=== PATIENT | male | born 1960 | race African-American/Black ===

== ENCOUNTER 2016-11-23 05:18 | Emergency (ER) | payer OTHER ==
--- NOTE | 2016-11-23 05:26 | PDOC ---
History of Present Illness - General Stated Complaint: CHEST DISCOMFORT Time Seen by Provider: 11/23/16 05:26 History Source: Patient Exam Limitations: No Limitations - History of Present Illness Initial Comments: 11/23/16 06:48 56yo Male patient w/ PmHx: HTN presents to ED c/o chest pain radiating down posterior aspect of his left arm starting 4 am this morning. Patient states symptoms woke him up out of his sleep. Patient describes symptoms as left arm feels "funny" in comparison to his right arm. He states he took a baby asa prior to arrival. Denies n/v/d, sweating, diff breathing, abd pain, back pain, dizziness, or any other complaints at this time. Presenting Symptoms: Chest Pain Severity/Quality: reports: mild, pressure Location: reports: substernal Chest Pain Radiation: reports: arms (Left) Activities at Onset: reports: sleep Prior Chest Pain/Cardiac Workup: reports: No prior chest pain, No prior cardiac workup Modifying Factors: worse with: antacids, breathing, coughing, defecating, eating , exercise, lying down, morphine, movement, nitroglycerin, oxygen, palpation, rest, other Nitro Today/Relief: No: no nitro taken today, 0.4 mg x 1, 0.4 mg x 2, 0.4 mg x 3 , 0.4 mg x 4, provided by EMS, provided by ED, provided at home, no relief, mild relief, complete relief Aspirin Received prior to arrival (Core Measure): Yes: 81 mg x 1 ASA Contraindications (Core Measure): No: Allergy, Other, Active Blding w/i 24 hrs., Plavix, Receiving Warfarin Past History - Travel Traveled outside of the country in the last 30 days: No Close contact w/someone who was outside of country & ill: No - Past Medical History Allergies/Adverse Reactions: Allergies Allergy/AdvReac Type Severity Reaction Status Date / Time No Known Allergies Allergy Verified 11/23/16 05:32 Home Medications: Ambulatory Orders Amlodipine Besylate/Benazepril [Lotrel 5-20 mg Capsule] 1 each PO DAILY HTN: Yes - Psycho/Social/Smoking Cessation Hx Anxiety: No Suicidal Ideation: No Smoking History: Never smoked Hx Alcohol Use: Yes (occasionally) Cardiac Specific PMH - Complaint Specific PMHX Abdominal Aortic Aneurysm: No Angina: No Cardiac Arrhythmia: No Cardiac Stent: No GERD: No Myocardial Infarction: No Pacemaker: No Pulmonary Embolus: No Valvular Heart Disease: No Peripheral Vascular Disease: No Review of Systems - Review of Systems Able to Perform ROS?: Yes Is the patient limited Mongolian proficient: No Constitutional: No: Chills, Fever Respiratory: No: Cough, Orthopnea, Shortness of Breath, Stridor, Wheezing Cardiac (ROS): Yes: Chest Pain. No: Edema, Lightheadedness, Palpitations, Syncope, Chest Tightness ABD/GI: No: Nausea, Poor Appetite, Poor Fluid Intake, Vomiting : No: Burning, Flank Pain, Hematuria Musculoskeletal: No: Back Pain Integumentary: No: Bruising, Erythema, Rash, Sweating Neurological: No: Headache, Numbness, Seizure, Tingling, Tremors, Weakness, Unsteady Gait, Ataxia, Dizziness All Other Systems: Reviewed and Negative *Physical Exam - Vital Signs Last Vital Signs Temp Pulse Resp BP Pulse Ox 98.7 F 65 13 141/91 99 11/23/16 05:32 11/23/16 06:04 11/23/16 06:04 11/23/16 06:04 11/23/16 06:04 - Physical Exam General Appearance: Yes: Nourished, Appropriately Dressed. No: Apparent Distress, Mild Distress, Moderate Distress, Severe Distress Neck: positive: Trachea midline, Normal Thyroid, Supple. negative: Rigid, Carotid bruit, Stridor, Lymphadenopathy (R), Lymphadenopathy (L) Respiratory/Chest: positive: Lungs Clear, Normal Breath Sounds. negative: Chest Tender, Respiratory Distress, Accessory Muscle Use, Labored Respiration, Rapid RR, Crackles, Rales, Rhonchi, Stridor, Wheezing Cardiovascular: positive: Regular Rhythm, Regular Rate. negative: Edema, JVD, Murmur Gastrointestinal/Abdominal: positive: Normal Bowel Sounds, Flat, Soft. negative : Distended, Guarding, Rebound, Tenderness Musculoskeletal: positive: Normal Inspection. negative: CVA Tenderness Extremity: positive: Normal Capillary Refill, Normal Inspection, Normal Range of Motion. negative: Pedal Edema, Swelling, Calf Tenderness, Erythema, Inflammation Integumentary: positive: Normal Color, Dry, Warm Neurologic: positive: reinforcement maker II-XII NML intact, Fully Oriented, Alert, Normal Mood/ Affect, Normal Response, Motor Strength 5/5 Heart Score/ECG Review - History History: Slightly suspicious - Electrocardiogram EKG: Normal - Age Age: 45-65 - Risk Factors Risk Factors Heart Score: No Hx Hypercholesterolemia, Yes Hx Hypertension, No Hx Diabetes, No Smoking History, No Positive family hx of cardiac disease, No Hx Obesity Based on the list above the patient has:: 1-2 risk factors - Troponin Troponin: </= normal limit - Score Heart Score - Total: 2 - ECG Impressions Normal ECG: Yes Non-specific ST Elevation: No Ischemic Changes: No Bradycardia: No Torsades sunny Pointes: No WPW: No ED Treatment Course - LABORATORY CBC & Chemistry Diagram: 11/23/16 05:35 11/23/16 05:35 - ADDITIONAL ORDERS Additional order review: Laboratory Results 11/23/16 05:35 Sodium 141 Potassium 4.1 Chloride 105 Carbon Dioxide 27 Anion Gap 9 BUN 16 Creatinine 0.9 D Creat Clearance w eGFR > 60 Random Glucose 94 Calcium 9.2 Total Bilirubin 0.8 D AST 15 D ALT 17 Alkaline Phosphatase 84 Creatine Kinase 185 Troponin I < 0.02 Total Protein 6.6 Albumin 3.6 11/23/16 05:35 RBC 4.90 MCV 84.4 MCHC 33.2 RDW 13.2 MPV 7.3 L Neutrophils % 39.8 L D Lymphocytes % 48.4 H D Monocytes % 9.3 Eosinophils % 1.4 Basophils % 1.1 - RADIOLOGY Radiology Studies Ordered: Category Date Time Status CHEST PA & LAT [RAD] Stat Radiology 11/23/16 05:26 Taken
[2016-11-23 05:35] VITALS: BMI 24.0
[2016-11-23 06:03] LABS: BASOPHIL 1.1 % (0-2.0); EOSINOPHIL 1.4 % (0-4.5); MCHC 33.2 g/dl (32.0-35.9); MEAN CELL VOLUME 84.4 fl (80-96); MEAN PLT VOLUME 7.3 fl (7.5-11.1); NEUTROPHILS 39.8 % (42.8-82.8); PLATELET COUNT 212 K/MM3 (134-434); RDW 13.2 % (11.9-15.9); WHITE BLOOD COUNT 4.1 K/mm3 (4.0-10.0)
[2016-11-23 06:34] LABS: ALBUMIN 3.6 g/dl (3.4-5.0); ANION GAP 9 (8-16); BILIRUBIN,TOTAL 0.8 mg/dL (0.2-1.0); CALCIUM 9.2 mg/dL (8.5-10.1); CO2 27 mmol/L (21-32); COCKROFT - GAULT 95.84; CREATININE 0.9 mg/dL (0.7-1.3); GLUCOSE,RANDOM 94 mg/dL (74-106); SGOT/AST 15 U/L (15-37); SGPT/ALT 17 U/L (12-78); TOT PROT 6.6 g/dl (6.4-8.2)
[2016-11-23 06:36] LABS: ALK PHOS 84 U/L (45-117); TROPONIN I < 0.02 ng/ml (0.00-0.05)
--- NOTE | 2016-11-23 07:45 | PDOC ---
ED Treatment Course - LABORATORY CBC & Chemistry Diagram: 11/23/16 05:35 11/23/16 05:35 - ADDITIONAL ORDERS Additional order review: Laboratory Results 11/23/16 11/23/16 11/23/16 05:35 05:35 05:35 D-Dimer < 200 Sodium 141 Potassium 4.1 Chloride 105 Carbon Dioxide 27 Anion Gap 9 BUN 16 Creatinine 0.9 D Creat Clearance w eGFR > 60 Random Glucose 94 Calcium 9.2 Total Bilirubin 0.8 D AST 15 D ALT 17 Alkaline Phosphatase 84 Creatine Kinase 185 Creatine Kinase Index CK-MB (CK-2) < 1.000 CK-MB (CK-2) Rel Index Cancelled Troponin I < 0.02 Total Protein 6.6 Albumin 3.6 11/23/16 05:35 RBC 4.90 MCV 84.4 MCHC 33.2 RDW 13.2 MPV 7.3 L Neutrophils % 39.8 L D Lymphocytes % 48.4 H D Monocytes % 9.3 Eosinophils % 1.4 Basophils % 1.1 Progress Note - Progress Note Progress Note: I have received report from GUADALUPE Fernandez regarding this patient. Pt's initial chief complaint: chest pain radiating down left arm Pt's work up completed prior to sign out: EKG, labs, CXR Pt treatment given from prior staff: none Pt plan to be completed: Awaiting repeat troponin at 10am Dispo: Pending Medical Decision Making - Medical Decision Making A/P: 56 y/o male with PMH HTN c/o chest pain radiating down left arm since 4am. The patient was initially evaluated by GUADALUPE Fernandez and has a Heart score of 2. EKG, CXR and all labs negative. Awaiting 2nd troponin at 10am - if normal the patient will be discharged to home with Cardiology follow up. 2nd troponin negative The patient confirms his chest pain has completely resolved and he feels well. Will discharge to home with a Cardiology referral. instructed him to return to the ER immediately with any worsening or concerning symptoms. The patient verbalizes understanding of all instructions, has no further questions and is awaiting discharge. *DC/Admit/Observation/Transfer Diagnosis at time of Disposition: Chest pain Qualifiers: Chest pain type: unspecified Qualified Code(s): R07.9 - Chest pain, unspecified - Discharge Dispostion Disposition: HOME Condition at time of disposition: Improved - Referrals Referrals: Marvin Richter MD [Primary Care Provider] - Bobo Mckeon MD [Staff Physician] - - Patient Instructions Printed Discharge Instructions: DI for Chest Pain Additional Instructions: Discharge instructions: -Please follow up with Dr. Jiménez as soon as possible for Cardiology follow up -Return to the ER immediately with any worsening or concerning symptoms.
[2016-11-23 08:38] VITALS: TEMP 98.4
[2016-11-23 10:18] LABS: TROPONIN I < 0.02 ng/ml (0.00-0.05)
[2016-11-23 11:01] VITALS: BP 116/74; PULSE 65
--- NOTE | 2016-11-23 12:32 | EKG ---
Test Reason : Blood Pressure : / mmHG Vent. Rate : 061 BPM Atrial Rate : 061 BPM P-R Int : 168 ms QRS Dur : 074 ms QT Int : 372 ms P-R-T Axes : 078 082 047 degrees QTc Int : 374 ms NORMAL SINUS RHYTHM VOLTAGE CRITERIA FOR LEFT VENTRICULAR HYPERTROPHY POSSIBLE ACUTE PERICARDITIS ABNORMAL ECG WHEN COMPARED WITH ECG OF 26-OCT-2009 23:06, VENT. RATE HAS DECREASED BY 30 BPM Confirmed by SURI NAYLOR MD ([id number]) on 11/23/2016 12:32:29 PM Referred By: Confirmed By:SURI NAYLOR MD
--- NOTE | 2016-11-24 11:44 | EKG ---
Test Reason : Blood Pressure : / mmHG Vent. Rate : 062 BPM Atrial Rate : 062 BPM P-R Int : 166 ms QRS Dur : 080 ms QT Int : 374 ms P-R-T Axes : 072 086 052 degrees QTc Int : 379 ms NORMAL SINUS RHYTHM MODERATE VOLTAGE CRITERIA FOR LVH, MAY BE NORMAL VARIANT ST ELEVATION, CONSIDER EARLY REPOLARIZATION, PERICARDITIS, OR INJURY ABNORMAL ECG WHEN COMPARED WITH ECG OF 23-NOV-2016 05:29, NO SIGNIFICANT CHANGE WAS FOUND Confirmed by CARLA MCKEON MD ([id number]) on 11/24/2016 11:44:07 AM Referred By: Confirmed By:CARLA MCKEON MD
== END 2016-11-23 11:01 | disposition home or self-care (01) ==
LOC: JER 05:18
DX: R07.89 Other chest pain (principal); I10 Essential (primary) hypertension
CPT/HCPCS: 36415; 71020-TC; 80053; 82550; 82553; 84484; 85025; 85379; 93005; 93010; 99285-25